=== PATIENT | female | born 1940 | race Caucasian/White ===

== ENCOUNTER 2016-10-17 17:35 | Emergency (ER) | payer OTHER, MEDICAID ==
[~2016-10-17] VITALS: Ht 144.8 cm; Wt 70.3 kg
[~2016-10-17 17:35] MED LIST: LEXAPRO10 MG PO; LOSARTAN PO; NORVASC5 MG PO; PRILOSEC40 MG PO; TRAMADOL HCL50 MG PO; TYLENOL EXTRA500 MG PO
[2016-10-17 17:40] VITALS: BP 161/81
[2016-10-17] MEDS ORDERED: diphenhydrAMINE 50 MG/ML VIAL IVP ONE (17:45)
[2016-10-17] MEDS ORDERED: FAMOTIDINE 20 MG/2 ML VIAL IVP ONE (17:45)
[2016-10-17] MEDS ORDERED: DEXAMETHASONE 10 MG/ML VIAL IVP ONE (17:45)
[2016-10-17] MEDS ORDERED: NACL 0.9% 1,000 ML IV ONE (17:45)
--- NOTE | 2016-10-17 17:45 | NUR ---
Patient ambulated to bed 2. RN evaluating patient at bedside.
--- NOTE | 2016-10-17 17:51 | NUR ---
Dr. Nielson evaluating patient at bedside.
--- NOTE | 2016-10-17 18:02 | NUR ---
BIB FAMILY, PT. STATES 15 MIN PRIOR TO ARRIVAL SHE WAS EATING A BURGER AT [employer] WHEN SHE NOTICED HER FACE AND NECK SWELLING, SWELLING AND REDNESS NOTED TO NECK AND FACE, BREATHING EVEN AND UNLABORED AT THIS TIME BUT PT. DEVELOPING DRY COUGH, AAOX4, AMBULATORY, GAIT STEADY, FAMILY AT BEDSIDE
--- NOTE | 2016-10-17 18:21 | NUR ---
Dr. Nielson re-evaluating patient at bedside.
--- NOTE | 2016-10-17 19:11 | NUR ---
technical publications manager at bedside.
--- NOTE | 2016-10-17 19:12 | NUR ---
Pt report given to NARESH BERNSTEIN. Transfer of care at this time.
--- NOTE | 2016-10-17 19:13 | NUR ---
PT STABLE, RESTING IN BED. X-RAY AT BEDSIDE. NO S/S OF DISTRESS NOTED AT THE MOMENT.
--- NOTE | 2016-10-17 20:03 | NUR ---
ER MD AWARE OF VS. PER ER MD BP MED TO BE GIVEN BEFORE D/C.
[2016-10-17] MEDS ORDERED: ENALAPRILAT 2.5 MG/2 ML VIAL IVP ONE (20:05)
[2016-10-17 20:35] VITALS: BP 154/68
--- NOTE | 2016-10-17 20:35 | NUR ---
Patient discharged BY ER MD with v/s stable. Written and verbal after care instructions given and explained BY ER MD. Patient alert, oriented and verbalized understanding of instructions. Ambulatory with steady gait. All questions addressed prior to discharge. ID band removed. Patient advised to follow up with PMD OR RETURN TO ER IF CONDITION WORSENS. Rx of PADMA AND MEDROL GIVEN given. PT TOLD TO CONT WITH HNT MEDS UNTIL TOMORROW.Patient educated on indication of medication including possible reaction and side effects. Opportunity to ask questions provided and answered.
== END 2016-10-17 20:35 | disposition home or self-care (01) ==
LOC: MED 17:40
DX: T78.09XA Anaphylactic reaction due to other food products, initial encounter (principal); I10 Essential (primary) hypertension
CPT/HCPCS: 36415; 71010; 80053; 84484; 85025; 96361; 96372; 96374; 96375; 99291; J0171; J1100; J1200; J3490; J7030; Q0092

== ENCOUNTER 2017-08-27 18:00 | Emergency (ER) | payer OTHER, MEDICAID ==
[~2017-08-27] VITALS: Ht 149.9 cm; Wt 74.8 kg
[~2017-08-27 18:00] MED LIST changes: +ACET-7740 PO; +AMLO5TAB PO; +ESCI10TA PO; -LEXAPRO10 MG PO; -NORVASC5 MG PO; -PRILOSEC40 MG PO; +TRAM50TA3 PO; -TRAMADOL HCL50 MG PO; -TYLENOL EXTRA500 MG PO
[2017-08-27 18:01] VITALS: BP 184/88
--- NOTE | 2017-08-27 18:17 | NUR ---
PATIENT BIBA DUE TO SP FALL;LT WRIST IS SWOLEEN AND APPEARS TO BE DEFORMED;DENIES ANY NUMBNESS/TINGLING SENSATION;DENIES HITTING HER HEAD/LOC;HX OF HTN;DENIES N/V/D; SKIN IS PINK/WARM/DRY; AAOX4; LUNGS CLEAR BL; HR EVEN AND REGULAR; PT DENIES ANY FEVER, CP, SOB, OR COUGH AT THIS TIME; PATIENT STATES PAIN OF 7/10 AT THIS TIME;PATIENT POSITIONED FOR COMFORT; HOB ELEVATED; BEDRAILS UP X2; BED DOWN. ER MD MADE AWARE OF PT STATUS.
--- NOTE | 2017-08-27 18:19 | NUR ---
XRAY AT BEDSIDE.
--- NOTE | 2017-08-27 19:20 | NUR ---
Patient discharged with v/s stable. Written and verbal after care instructions given and explained. Patient alert, oriented and verbalized understanding of instructions. Ambulatory with steady gait. All questions addressed prior to discharge. ID band removed. Patient advised to follow up with PMD. Rx of NORCO AND MOTRIN given. Patient educated on indication of medication including possible reaction and side effects. Opportunity to ask questions provided and answered.
[2017-08-27 19:21] VITALS: BP 170/81
--- NOTE | 2017-08-27 19:35 | NUR ---
CALLED PT, LEFT U-BNWO-BPEEF LEFT XRAY DISC. LEFT [facility] ER PHONE [phone] FOR HER TO HOT SAW HELPER.
--- NOTE | 2017-08-27 20:10 | NUR ---
PT AND SON PICKED UP XRAY DICS
== END 2017-08-27 19:20 | disposition home or self-care (01) ==
LOC: MED 18:00
DX: S62.102A Fracture of unspecified carpal bone, left wrist, initial encounter for closed fracture (principal); I10 Essential (primary) hypertension; Z79.899 Other long term (current) drug therapy; X58.XXXA Exposure to other specified factors, initial encounter; Y93.89 Activity, other specified; Y92.89 Other specified places as the place of occurrence of the external cause; Y99.8 Other external cause status
CPT/HCPCS: 29105; 73110; 99284; Q0092

== ENCOUNTER 2018-06-12 11:48 | Inpatient (IN) | payer OTHER ==
[~2018-06-12] VITALS: Ht 144.8 cm; Wt 72.6 kg
[2018-06-12 12:00] VITALS: BP 116/66
--- NOTE | 2018-06-12 12:04 | NUR ---
PT TAKEN TO BED 4 AT THIS TIME VIA W/C
--- NOTE | 2018-06-12 12:14 | NUR ---
77 YO F BIB DAUGHTER WITH C/O VOMITING, RLQ PAIN X 3 DAYS WITH DIZZINESS. PT DENIES FEVER. AAOX4, GCS 15, CMS INTACT. RR EVEN AND UNLABORED, LUNGS BL CLEAR. ABD SOFT, NON-TENDER. BOWEL SOUNDS ACTIVE X 4. SKIN WARM AND DRY TO THE TOUCH, COLOR APPRORPIATE FOR ETHNICITY. ER MD NOTIFIED. PT NEEDS MET, SAFETY PRECAUTIONS IN PLACE. WILL CONTINUE TO MONITOR.
[2018-06-12] MEDS ORDERED: NACL 0.9% 1,000 ML IV SCH (12:26)
[2018-06-12] MEDS ORDERED: MORPHINE SULFATE 4 MG/ML SYR IVP ONE (12:30)
[2018-06-12] MEDS ORDERED: ONDANSETRON 4 MG/2 ML VIAL IVP ONE (12:30)
[2018-06-12] MEDS ORDERED: ATRO1TAB PO (12:32)
[2018-06-12] MEDS ORDERED: ASPI81CT89 PO (12:32)
[2018-06-12] MEDS ORDERED: COM5 PO (12:32)
[2018-06-12] MEDS ORDERED: VITD1000 PO (12:32)
[2018-06-12 12:40] LABS: BASOPHILS % (AUTO) 0.1 % (0.0-2.0); EOSINOPHILS % (AUTO) 0.1 % (0.0-4.0); HEMATOCRIT 47.2 % (36-48); HEMOGLOBIN 16.2 g/dL (12.0-16.0); LYMPHOCYTES # (AUTO) 1.2 K/uL (2.5-16.5); LYMPHOCYTES % (AUTO) 5.9 % (20.5-51.1); MEAN CORPUSCULAR HEMOGLOBIN 33 pg (27-31); MEAN CORPUSCULAR HGB CONC 34 g/dL (33-37); MEAN CORPUSCULAR VOLUME 95.2 fL (80-94); MONOCYTES # (AUTO) 1.1 K/uL (0.8-1.0); MONOCYTES % (AUTO) 5.5 % (1.7-9.3); NEUTROPHILS % (AUTO) 88.4 % (42.2-75.2); PLATELET COUNT (AUTO) 444 K/uL (140-450); RED BLOOD CELL COUNT(AUTO) 4.96 MIL/uL (4.20-5.40); RED CELL DISTRIBUTION WIDTH 12.6 % (11.6-13.7); WHITE BLOOD COUNT (AUTO) 20.3 K/uL (4.8-10.8)
[2018-06-12 12:51] LABS: ANION GAP 16.8 (8-16); CARBON DIOXIDE 28.5 mmol/L (21-32); CHLORIDE 86 mmol/L (98-107); CREATININE 2.2 mg/dL (0.6-1.3); GLUCOSE 200 mg/dL (74-106); POTASSIUM 3.3 mmol/L (3.5-5.1); SODIUM SERUM 128 mmol/L (136-145); UREA NITROGEN, BLOOD 59 mg/dL (7-18)
[2018-06-12 12:57] LABS: ALBUMIN 3.9 g/dL (3.4-5.0); ASPARTATE AMINOTRANSFERASE 25 U/L (15-37); LIPASE 1426 U/L (73-393)
[2018-06-12] MEDS ORDERED: PIPERACILLIN/TAZOBACTAM 3.375 GM in DEXTROSE 5% 50 ML IV ONE (13:20)
--- NOTE | 2018-06-12 13:24 | NUR ---
PT TAKEN TO CT SCAN AT THIS TIME VIA SHELBY
[2018-06-12] MEDS ORDERED: PIPERACILLIN/TAZOBACTAM 3.375 GM VIAL IV ONE (13:35)
--- NOTE | 2018-06-12 14:09 | NUR ---
U/S AT BEDSIDE AT THIS TIME.
--- NOTE | 2018-06-12 14:39 | NUR ---
PT UNABLE TO PRODUCE URINE AT THIS TIME, REFUSES STRAIGHT CATH. NISHANT BAILEY NOTIFIE.D
[2018-06-12] MEDS ORDERED: DOCUSATE SODIUM 100 MG GELCAP PO PRN (15:15)
[2018-06-12] MEDS ORDERED: HYDROcodone/APAP 5/325 MG 1 TAB TAB PO PRN (15:15)
[2018-06-12] MEDS ORDERED: ONDANSETRON 4 MG/2 ML VIAL IM/IVP PRN (15:15)
[2018-06-12] MEDS ORDERED: ZOLPIDEM 5 MG TAB PO PRN (15:15)
[2018-06-12] MEDS ORDERED: ACETAMINOPHEN 325 MG TAB PO PRN (15:15)
[2018-06-12] MEDS ORDERED: LORazepam 2 MG/ML VIAL IM/IVP PRN (15:15)
[2018-06-12] MEDS ORDERED: INSULIN LISPRO SLIDING SCALE 100 UNITS/ML VIAL SUBQ PRN (15:25)
[2018-06-12] MEDS ORDERED: DEXTROSE 50% 50 ML SYR IVP PRN (15:25)
--- NOTE | 2018-06-12 15:41 | NUR ---
attempted NG insertion at this time w/o success. forms analysis manager and ER MD notified.
[2018-06-12] MEDS: BLOOD GLUCOSE MONITORING 1 DEV DEV FS SCH ×2 (16:30→20:49)
--- NOTE | 2018-06-12 16:30 | NUR ---
NG insertion attempted x 4 times to insert NG Tube. er md and resident at bedside aware of insertion difficulties. Pt does not tolerate insertion well. Pt vomits up small amount of brown, BM-smelling emesis. Pt appears tired. MD states to give pt rest with insertion and go to floor. dental assistant teacher notified.
--- NOTE | 2018-06-12 16:40 | NUR ---
Patient will be admitted to care of [facility]. Admited to tele. Will go to room 120 B. Belongings list completed. Report to NARESH Doss.
--- NOTE | 2018-06-12 16:48 | NUR ---
PT ARRIVED FROM ER IN [facility], REPORT RECEIVED FROM STEM TEACHER, PT TRANSFERRED TO BED, PT AWAKE, RESP EVEN SLIGHTLY LABORED AND TACHYPNEIC, LUNGS CLEAR, VITALS STABLE, PT SETSWANA SPEAKINGSON AT BEDSIDE, PT ORIENTED TO ROOM AND FLOOR, ALL SAFETY MEASURES IN PLACE, CALL LATHAM WITHIN REACH, SIDE RAILS UP, WILL CONTINUE TO MONITOR.
[2018-06-12 17:00] VITALS: BP 122/60
[2018-06-12] MEDS ORDERED: NACL 0.9% 500 ML IV SCH (17:05)
--- NOTE | 2018-06-12 17:15 | NUR ---
SATURATION 93% ON ROOM AIR DR TASHI DANIELS AT BEDSIDE OK FOR SUPPLEMENTAL OXYGEN AT 2 LPM VIA NC
--- NOTE | 2018-06-12 17:22 | NUR ---
AWAKE AND ALERT C/O PAIN MD AWARE TACHYPNEIC AT 32 BPM NO HHN THERAPY NOT REQUIRED AT THIS TIME REVIEWED STATUS WITH RAVI/RN
[2018-06-12] MEDS ORDERED: MORPHINE SULFATE 4 MG/ML SYR IVP PRN (17:25)
[2018-06-12] MEDS ORDERED: POTASSIUM CHLORIDE 40 MEQ, LIDOCAINE MPF 1% - 5 mL VIAL 25 MG in NACL 0.9% 250 ML IV SCH (17:30)
--- NOTE | 2018-06-12 17:30 | NUR ---
PT C/O SEVER BACK PAIN, PT APPEARS UNCOMFORTABLE, UNABLE TO SIT STILL, ABD SOFT, NON DISTENDED, DR REYES MADE AWARE, WILL GIVE MORPHINE PER ORDER.
[2018-06-12 18:01] LABS: CHOL/HDL RATIO 2.5 (1-4.5); MAGNESIUM 1.8 mg/dL (1.8-2.4); THYROID STIMULATING HORMONE 2.35 uIU/mL (0.34-3.74)
--- NOTE | 2018-06-12 18:05 | NUR ---
PT APPEARS MUCH MORE COMFORTABLE, PT RELAXED, RESTING QUIETLY, RESP EVEN UNALBORED, RR 20, FAMILY REMAINS AT BEDSIDE.
[2018-06-12 18:08] LABS: PROTHROMBIN TIME 9.7 secs (10.8-13.4)
[2018-06-12] MEDS: DEXT 5% /NACL 0.9% 1,000 ML IV SCH (18:11)
--- NOTE | 2018-06-12 18:11 | NUR ---
LAB AT BEDSIDE FOR BLOOD DRAW
--- NOTE | 2018-06-12 18:43 | NUR ---
NG 12F PLACED TO RIGHT NARE, 1000ML OF BROWN SECRETION SUCTIONED, XRAY AT BEDSIDE FOR CXR, PT LUISA MELENDEZ. Addendum: 06/12/18 at 2031 by Selam Roland RN 850ML NOT 1000ML
--- NOTE | 2018-06-12 19:29 | NUR ---
REPORT GIVEN TO NIGHT HISFT NURSE, PT IN STABLE CONDITION.
--- NOTE | 2018-06-12 19:30 | NUR ---
RECEIVED PT IN STABLE CONDITION FROM AM NURSE. AWAKE,ALERT AND ORIENTED X 4. ON TELE -ST. ON O22L.NC. FAMILY MEMBERS AT BEDSIDE. WITH NGT TO INTERMITTENT SUCTION. IVF INFUSING WELL ON THE LT AC#20. CLEAR AND PATENT. PLAN OF CARE DISCUSSED AND PT/FAMILY AND THEY VERBALIZED UNDERSTANDING. KEPT NPO FOR POSSIBLE SURGERY TONIGHT. BED ON LOW POSITION. CALL LIGHT WITHIN REACH. WILL CONTINUE TO MONITOR.
[2018-06-12 19:45] VITALS: BP 124/74
[2018-06-12] MEDS: ALBUTEROL SULFATE/IPRATROPIU 3 ML SOL IH PRN (19:51)
[2018-06-12] MEDS ORDERED: HYDROmorphone 1 MG/ML AMP IVP ONE (20:20)
--- NOTE | 2018-06-12 20:49 | NUR ---
BLOOD SUAGR AWSS 181. DR. ESTRELLA SAID TO HOLD INSULIN COVERAGE.
[2018-06-12] MEDS ORDERED: PIPER/TAZO 2.25GM/D5W PREMIX 50 ML IV SCH (21:00)
--- NOTE | 2018-06-12 21:00 | NUR ---
KNUCKLE STRAP SEWER CALLED AND SAID RESULT OF CXR IS IN AND NEED TO BE ADDRESSED. NGT ON 850 LEVEL. REPOSITIONED, PUSHED NGT @1 INCH MORE THEN,CHECKED PLACEMENT. NGT CONNECTED BACK TO SUCTION AND STARTED SUCTIONING TOTAL 650 ML OF SLIGHTLY PINK TO LIGHT BROWN FLUIDS OUTPUT . PT ABDOMEN SOFT ,SLIGHTLY TENDER. WILL CONTINUE TO MONITOR.
--- NOTE | 2018-06-12 21:05 | NUR ---
PAGED DR. MONTILLA TO KNOW THE TIME OF SURGERY. CALLED BACK. HE IS DOING SURGERY TONIGHT. WAY . RN SIGNAL SYSTEM TESTING MAINTAINER ALSO AWARE FOR DR. MONTILLA TALKED TO HER ALSO.
--- NOTE | 2018-06-12 21:52 | NUR ---
BLOOD TRANSFUSION CONSENT SIGNED BY SON . WILL TALK TO DR. MONTILLA SOON HE COMES TO THE FLOOR.
[2018-06-12] MEDS ORDERED: MIDAZOLAM 2 MG/2 ML VIAL ONE (22:22)
[2018-06-12] MEDS ORDERED: fentaNYL 0.05 MG/ML VIAL ONE (22:23)
--- NOTE | 2018-06-12 22:24 | NUR ---
DR. MONTILLA CAME AND TALKED TO PT/FAMILY MEMBERS. TO OR BY BED. WITH IVF INFUSING . NGT CLAMPED. ON O22L/NC.
[2018-06-12] MEDS ORDERED: SEVOFLURANE 250 ML BTL INH ONE (22:25)
[2018-06-12] MEDS ORDERED: NEOSTIGMINE 1:1000 10 MG/10 ML VIAL ONE (22:25)
[2018-06-12] MEDS ORDERED: PROPOFOL 200 MG/20 ML VIAL IV ONE (22:25)
[2018-06-12] MEDS ORDERED: ROCURONIUM 50 MG/5 ML VIAL IV ONE (22:25)
[2018-06-12] MEDS ORDERED: SUCCINYLCHOLINE CHLORIDE 200 MG/10 ML VIAL IVP ONE (22:25)
[2018-06-12] MEDS ORDERED: BUPIVACAINE-MPF/EPI 0.25% 30 ML VIAL INJ ONE (22:37)
[2018-06-12] MEDS ORDERED: ONDANSETRON 4 MG/2 ML VIAL IVP PRN (23:35)
[2018-06-12] MEDS ORDERED: LACTATED RINGERS 1,000 ML IV SCH (23:35)
[2018-06-12] MEDS ORDERED: HYDROmorphone 1 MG/ML AMP IVP PRN (23:35)
[2018-06-12] MEDS ORDERED: diphenhydrAMINE 50 MG/ML VIAL IVP PRN (23:35)
[2018-06-13] VITALS (36 sets, daily range): BP systolic 43–159; BP diastolic 13–97
[2018-06-13] MEDS ORDERED: FUROSEMIDE 40 MG/4 ML VIAL IVP ONE (00:16)
[2018-06-13] MEDS: ALBUTEROL SULFATE/IPRATROPIU 3 ML SOL IH PRN ×2 (00:41→03:04)
[2018-06-13] MEDS ORDERED: ePHEDrine 50 MG/ML VIAL ONE (01:02)
[2018-06-13] MEDS ORDERED: PROPOFOL 1000 MG/100 ML PREMIX 100 ML IV PRN (01:35)
--- NOTE | 2018-06-13 01:35 | NUR ---
RECEIVED PT FROM OR. PT IN STABLE CONDITION. UNABLE TO FOLLOW COMMANDS. INTUBATED. FIO2 100%. AFEBRILE 97.6. LUNG SOUNDS CLEAR. LABORED BREATHING. NGT TO L NARE TO LOW INTERMITTENT SUCTION. NPO. DING IN PLACE. S1S2 PRESENT. ST ON MONITOR . IV SITE L AC 20G. RIGHT FEMORAL LORENZO DRAIN. BED IN LOWEST POSITION. SIDE RAILS UP X 4. WILL CONTINUE TO MONITOR.
[2018-06-13] MEDS: DEXT 5% /NACL 0.9% 1,000 ML IV SCH (01:40)
--- NOTE | 2018-06-13 01:42 | NUR ---
PT INTUBATED BY Rand CARVALHO ATTENDED WITH RT RUSHING AND O.R. STAFF, TRANSFERRED PT TO ICU WITH NO INCIDENT. ABG DONE WITH NO INCIDENT, VERIFIED BY REPEAT ANALYSIS, VERBAL READBACK CONFIRMED AND CALLED RESULTS TO JOSE PINEDA. VENT CONNECTED TO RED OUTLET. ALARMS AUDIBLE. NO SOB OR DISTRESS NOTED. WILL CONTINUE TO MONITOR.
--- NOTE | 2018-06-13 02:00 | NUR ---
PT DISLOGED NGT. DR. ESTRELLA ORDERED FOR PROPOFOL DRIP.
--- NOTE | 2018-06-13 02:10 | NUR ---
REINSERTED NGT TO L NARE. BLOOD PRESSURE 129/90 AT THIS TIME.
--- NOTE | 2018-06-13 02:50 | NUR ---
PT HAS LOW SATURATION AND UNABLE TO OBTAIN BP. CALLED RT AT THIS TIME
--- NOTE | 2018-06-13 02:56 | NUR ---
UNABLE TO GET A POX READING DUE TO LOW BP .. TRIED FINGER AND EAR. PATIENT IS ON 100% FIO2 ON VENTILATOR
--- NOTE | 2018-06-13 03:00 | NUR ---
PAGED DR. ESTRELLA. UNABLE TO OBTAIN BP. EKG SHOWS SINUS TACH. ORDERED FOR CENTRAL LINE PLACEMENT
[2018-06-13] MEDS ORDERED: NACL 0.9% 1,000 ML IV ONE (03:10)
[2018-06-13] MEDS ORDERED: NOREPINEPHRINE 8 MG in DEXTROSE 5% 250 ML IV PRN (03:10)
[2018-06-13] MEDS ORDERED: AMIODARONE 150 MG/3 ML VIAL IV ONE (03:21)
[2018-06-13] MEDS ORDERED: NOREPINEPHRINE 4 MG/4 ML VIAL IV ONE ×2 (03:21→03:44)
[2018-06-13] MEDS ORDERED: SODIUM BICARBONATE 8.4% PFS 50 MEQ/50 ML SYR IVP ONE (03:21)
[2018-06-13] MEDS ORDERED: EPINEPHrine PFS 0.1 MG/ML SYR IVP ONE (03:21)
--- NOTE | 2018-06-13 03:45 | NUR ---
DR. QUIROZ AT BEDSIDE TO INSERT CENTRAL LINE TO LEFT FEMORAL
--- NOTE | 2018-06-13 03:45 | NUR ---
LEVOPHED 10 MCG ADMINISTERED = 12.7 ML/HR
--- NOTE | 2018-06-13 03:46 | NUR ---
PAGED DR. MONTILLA REGARDING CURRENT CODE BLUE.
--- NOTE | 2018-06-13 03:52 | NUR ---
LEVOPHED 20 MCG ADJUSTED = 37.5ML/HR
[2018-06-13] MEDS ORDERED: EPINEPHrine 1:1000 6 MG in DEXTROSE 5% 250 ML IV PRN (03:55)
--- NOTE | 2018-06-13 03:55 | NUR ---
DR DAY AT BEDSIDE
--- NOTE | 2018-06-13 03:59 | NUR ---
0321 CODE BLUE CALLED. STARTED COMPRESSIONS AND BAGGING PATIENT WITH 100% FIO2. ACLS DRUGS GIVEN. HEART RATE CAME BACK. PLACED PATIENT BACK ON VENT WITH SAME SETTINGS
--- NOTE | 2018-06-13 04:05 | NUR ---
LEVOVPHED 30 MCG/KG/MIN ADJUSTED = 56.2 ML/HR
--- NOTE | 2018-06-13 04:06 | NUR ---
0339 CODE BLUE CALLED AGAIN. CPR STARTED AND BAGGING PATIENT WITH FIO2 100%. ACLS DRUGS GIVEN. HEART RATE CAME BACK AND PATIENT PLACED BACKM ON VENT WITH SAME SETTINGS. PT HAS LARGE AMOUNTS OF RED FROTHY SECRETIONS. WITH WERE SXNED
--- NOTE | 2018-06-13 04:08 | NUR ---
DR. QUIROZ INSERTED CENTRAL LINE TO RIGHT FEMORAL AT THIS TIME.
--- NOTE | 2018-06-13 04:11 | NUR ---
4MG EPI ADMINISTERED. PT IN SINUS RHYTHM AT THIS TIME. 3L NS BOLUS GIVEN TOTAL
--- NOTE | 2018-06-13 04:50 | NUR ---
FAMILY AT BEDSIDE AT THIS TIME.
[2018-06-13] MEDS ORDERED: PIPER/TAZO 2.25GM/D5W PREMIX 50 ML IV SCH (05:00)
[2018-06-13] MEDS ORDERED: PIPERACILLIN/TAZOBACTAM 2.25 GM VIAL IV ONE (05:13)
--- NOTE | 2018-06-13 05:35 | NUR ---
unable to get saturation. poor perfusion
--- NOTE | 2018-06-13 05:37 | NUR ---
PAGED DR MONTILLA AGAIN TO INFORM OF CODE.
--- NOTE | 2018-06-13 05:39 | NUR ---
PAGED DR ESTRELLA OF DROPPING BLOOD PRESSURE. WILL CONTINUE TO FOLLOW UP ADDITIONAL ORDERS.
--- NOTE | 2018-06-13 05:50 | NUR ---
VASOPRESSIN STARTED AT THIS TIME
[2018-06-13] MEDS: VASOPRESSIN 20 UNITS in NACL 0.9% 250 ML IV SCH ×2 (05:55→07:10)
[2018-06-13] MEDS ORDERED: VASOPRESSIN 20 UNITS/ML VIAL ONE ×2 (05:56→07:10)
--- NOTE | 2018-06-13 06:00 | NUR ---
RT AT BEDSIDE AT THIS TIME. XRAY AT BEDSIDE AT THIS TIME
--- NOTE | 2018-06-13 06:11 | NUR ---
DR HO AT BEDSIDE AT THIS TIME.
--- NOTE | 2018-06-13 06:18 | NUR ---
NGT REMOVED AND REINSERTED AT THIS TIME.
--- NOTE | 2018-06-13 06:23 | NUR ---
RECEIVED PT ON [place] ON DOCUMENTED SETTINGS ALARMS ARE ON AND AUDIBLE PT ET TUBE SIZE 7,5 IS SECURE [address] FAST IN PLACE PT IN HF NOT AWAKE BS CRACKLES FAMILY MEMBERS PRESENT BMV HOB VENT PLUGGED INTO RED OUTLET
[2018-06-13] MEDS ORDERED: NACL 0.9% 500 ML IV SCH (06:30)
--- NOTE | 2018-06-13 06:30 | NUR ---
DR. HO MET WITH PT FAMILY AT THIS TIME. CODE STATUS CHANGED FROM FULL CODE TO MODIFIED CODE WITH NO CHEST COMPRESSIONS. ACLS DRUGS ONLY
[2018-06-13 06:31] LABS: BASOPHILS % (AUTO) 0.4 % (0.0-2.0); EOSINOPHILS # (AUTO) 0.1 K/uL (0-0.4); EOSINOPHILS % (AUTO) 1.9 % (0.0-4.0); HEMATOCRIT 40.8 % (36-48); HEMOGLOBIN 13.3 g/dL (12.0-16.0); LYMPHOCYTES # (AUTO) 1.4 K/uL (2.5-16.5); LYMPHOCYTES % (AUTO) 31.5 % (20.5-51.1); MEAN CORPUSCULAR HEMOGLOBIN 33 pg (27-31); MEAN CORPUSCULAR HGB CONC 33 g/dL (33-37); MEAN CORPUSCULAR VOLUME 101.5 fL (80-94); MONOCYTES # (AUTO) 0.2 K/uL (0.8-1.0); MONOCYTES % (AUTO) 3.5 % (1.7-9.3); NEUTROPHILS # (AUTO) 2.7 K/uL (1.8-7.7); NEUTROPHILS % (AUTO) 62.7 % (42.2-75.2); PLATELET COUNT (AUTO) 257 K/uL (140-450); RED BLOOD CELL COUNT(AUTO) 4.02 MIL/uL (4.20-5.40); RED CELL DISTRIBUTION WIDTH 13.1 % (11.6-13.7); WHITE BLOOD COUNT (AUTO) 4.3 K/uL (4.8-10.8)
--- NOTE | 2018-06-13 06:31 | NUR ---
DR HO ORDERED BOLUS 500 ML NORMAL SALINE AT THIS TIME.
--- NOTE | 2018-06-13 06:32 | NUR ---
LAB AT BEDSIDE AT THIS TIME TO REDRAW BLOOD. BLOOD HEMOLYZED.
--- NOTE | 2018-06-13 06:37 | NUR ---
LEAVE MESSAGE TO [facility], FAMILY WANTS DRYING ROOM ATTENDANT
[2018-06-13] MEDS ORDERED: NACL 0.9% 500 ML IV ONE (06:40)
--- NOTE | 2018-06-13 07:04 | NUR ---
ENDORSED CARE TO INCOMING SHIFT FOR CONTINUITY OF CARE. FAMILY AT BEDSIDE.
--- NOTE | 2018-06-13 07:05 | NUR ---
RECEIVED REPORT FROM LEASE ADMINISTRATION SUPERVISOR RN AT BEDSIDE, PT IS LETHARGIC, UNABLE TO FOLLOW COMMANDS AND MAKE NEEDS KNOWN, FLACC 0. ETT TO VENT WITH AC/PC MODE FIO2 100, R 16, PEEP 5. NO S/S OF DISTRESS, RHONCHI LUNG SOUNDS MEREDITH, O2 SAT 77%, SR ON ACCOUNTANT AUDITOR, WEAK PULSES TO EXTREMITIES NOTED, BP 84/46, SOFT ABDOMEN WITH HYPOACTIVE SOUNDS, SURGICAL WOUND SITE TO LOWER ABDOMEN WITH JEFF, NO BLEEDING NOTED, LORENZO DRAINAGE TO RIGHT GROIN WITH DARK RED DRAINAGE NOTED, CENTRAL LINE TO RIGHT FEMORAL, TLC, PATENT, RUNNING VASOPRESSIN AT 0.4UNITS/HR, LEVOPHED AT 30 MCG/MIN, AND EPINEPHRINE AT 10 MCG/MIN. DING CATHETER IN PLACE WITH CLOUDY DARK YELLOW URINE IN BAG VIA GRAVITY, SEVERE WEAKNESS TO ALL EXTREMITIES. SKIN IS COLD, BEARHUGGER PLACED ON, PERIPHERAL LINE TO LAC, 20GA, PATENT, RUNNING D5NS AT 100ML/HR. HOB ELEVATED TO 30 DEGREES, SAFETY MEASURE IN PLACE, WILL CONTINUE TO MONITOR. Addendum: 06/13/18 at 1016 by Opal Hermosillo RN OGT IN PLACE WITH IWS.
[2018-06-13] MEDS: BLOOD GLUCOSE MONITORING 1 DEV DEV FS SCH (07:30)
[2018-06-13 07:56] LABS: BASOPHILS % (AUTO) 0.4 % (0.0-2.0); EOSINOPHILS # (AUTO) 0.1 K/uL (0-0.4); HEMATOCRIT 32.7 % (36-48); HEMOGLOBIN 10.7 g/dL (12.0-16.0); LYMPHOCYTES # (AUTO) 1.7 K/uL (2.5-16.5); LYMPHOCYTES % (AUTO) 29.2 % (20.5-51.1); MEAN CORPUSCULAR HEMOGLOBIN 34 pg (27-31); MEAN CORPUSCULAR HGB CONC 33 g/dL (33-37); MEAN CORPUSCULAR VOLUME 102.2 fL (80-94); MONOCYTES # (AUTO) 0.2 K/uL (0.8-1.0); MONOCYTES % (AUTO) 2.7 % (1.7-9.3); NEUTROPHILS # (AUTO) 3.9 K/uL (1.8-7.7); NEUTROPHILS % (AUTO) 66.7 % (42.2-75.2); PLATELET COUNT (AUTO) 221 K/uL (140-450); RED CELL DISTRIBUTION WIDTH 13.2 % (11.6-13.7); WHITE BLOOD COUNT (AUTO) 5.8 K/uL (4.8-10.8)
--- NOTE | 2018-06-13 08:00 | NUR ---
ACCU CHECK WITH 194MG/DL, DR. HO SAID IT IS OK TO HOLD INSULIN NOW, WILL CHANGE FLUID AND ACCU CHECK Q1H, JUST MONITOR.
--- NOTE | 2018-06-13 08:15 | NUR ---
ORAL CARE PROVIDED, PT HAD A BOWEL MOVEMENT, PERICARE PROVIDED, POSITION CHANGED FOR OFF LOAD PRESSURE.
[2018-06-13 08:16] LABS: ANION GAP 24.9 (8-16); CARBON DIOXIDE 12.7 mmol/L (21-32); CHLORIDE 102 mmol/L (98-107); CREATININE 2.6 mg/dL (0.6-1.3); GLUCOSE 194 mg/dL (74-106); POTASSIUM 3.6 mmol/L (3.5-5.1); SODIUM SERUM 136 mmol/L (136-145); UREA NITROGEN, BLOOD 56 mg/dL (7-18)
[2018-06-13 08:18] LABS: PROTHROMBIN TIME 19.3 secs (10.8-13.4)
--- NOTE | 2018-06-13 08:30 | NUR ---
IT IS OK TO HOLD AM PO MEDICATION AT THIS TIME PER DR. HO DUE TO PT'S CONDITION.
--- NOTE | 2018-06-13 08:39 | NUR ---
PATIENT HAS BEEN SCREENED AND CATEGORIZED HIGH NUTRITION RISK. PATIENT WILL BE SEEN WITHIN 1-2 DAYS OF ADMISSION. 06/13/18-06/14/[address]
--- NOTE | 2018-06-13 08:45 | NUR ---
rts unable to obtain abg at this time md brar
[2018-06-13 08:49] LABS: MAGNESIUM 1.6 mg/dL (1.8-2.4); PHOSPHORUS 7.1 mg/dL (2.5-4.9)
[2018-06-13] MEDS ORDERED: amLODIPine 5 MG TAB PO SCH (09:00)
[2018-06-13] MEDS ORDERED: LACTOBACILLUS RHAMNOSUS GG 1 EACH CAP PO SCH (09:00)
[2018-06-13] MEDS ORDERED: NACL 0.9% 1,000 ML IV SCH (09:00)
[2018-06-13] MEDS ORDERED: LOSARTAN 50 MG TAB PO SCH (09:00)
[2018-06-13] MEDS ORDERED: ASPIRIN 81 MG TAB.CHEW PO SCH (09:00)
[2018-06-13] MEDS ORDERED: CHOLECALCIFEROL 1,000 IU TAB PO SCH (09:00)
[2018-06-13] MEDS ORDERED: LOSARTAN 100 MG PO SCH (09:00)
--- NOTE | 2018-06-13 10:00 | NUR ---
NO S/S OF DISTRESS, FLACC 0, POSITION CHANGED FOR OFF LOAD PRESSURE.
--- NOTE | 2018-06-13 10:22 | NUR ---
DR. HO SPOKE TO PT'S SON THE RISK AND BENEFIT OF EXTUBATION, PT'S SON VERBALIZED UNDERSTANDING, AND AGREED TO EXTUBATE PT, AND PUT PT ON COMFORT CARE WITH MORPHINE DRIP.
[2018-06-13] MEDS ORDERED: MORPHINE SULFATE 50 MG in NACL 0.9% 45 ML IV PRN (10:30)
[2018-06-13] MEDS ORDERED: SCOPOLAMINE 1.5 MG/72 HR PATCH TD SCH (10:30)
[2018-06-13] MEDS ORDERED: HYOSCYAMINE 0.125 MG TAB NG PRN (10:30)
[2018-06-13] MEDS ORDERED: LORazepam 2 MG/ML VIAL IVP PRN (10:30)
[2018-06-13] MEDS ORDERED: BLOOD GLUCOSE MONITORING 1 DEV DEV FS SCH (11:00)
--- NOTE | 2018-06-13 11:45 | NUR ---
PT EXTUBATED PER ORDER
--- NOTE | 2018-06-13 11:54 | NUR ---
EXTUBATED AT 1145 BY RN, PT IS ASYSTOLE AT 1148, DR. MARTEL PRONOUNCED AT 1152. PT'S FAMILY MEMBERS AT BEDSIDE.
--- NOTE | 2018-06-13 12:08 | NUR ---
CALLED [facility], , THEY WILL NOT CONSIDER AN ORGAN DONATION AT THIS TIME.
--- NOTE | 2018-06-13 12:22 | NUR ---
INFORMED SB LOADER MACHINE, WILL CALL BACK LATER.
--- NOTE | 2018-06-13 13:36 | NUR ---
CELERY STRIPPER CHRISTIANE COPPOLA CALLED BACK, AND OK TO RELEASE THE BODY, .
--- NOTE | 2018-06-13 13:40 | NUR ---
CALLED [facility], WILL CALL OR CONTACT CENTRE OPERATOR PT'S BODY IN [id number] MINS.
--- NOTE | 2018-06-13 14:35 | NUR ---
Ground Hand Note: Note for earlier today: I met with patient's son Venu Patel. Venu is patient's healthcare decision maker. Prior to hospital admission patient was living with Venu, Venu was patient's caregiver. He stated patient's family members are all in agreement with extubation. He stated they are not interested in hospice services. He expressed all of their questions and concerns have been address by . He thanked us for our assistance and support. I provided him with my contact information.
--- NOTE | 2018-06-13 16:00 | NUR ---
pt's body was picked up by [facility].
== END 2018-06-13 11:52 | disposition expired | DRG 853 ==
LOC: MED 11:48 → MTU 15:21 → MIC 06-13 01:18
PROVIDERS: ADMIT General Practice; ATTEND General Practice
PROC: 0D9670Z Drainage of Stomach with Drainage Device, Via Natural or Artificial Opening (ICD-10-PCS; 2018-06-12)
PROC: 5A1935Z Respiratory Ventilation, Less than 24 Consecutive Hours (ICD-10-PCS; principal; 2018-06-13)
PROC: 0YQ70ZZ Repair Right Femoral Region, Open Approach (ICD-10-PCS; 2018-06-13)
PROC: 0BH17EZ Insertion of Endotracheal Airway into Trachea, Via Natural or Artificial Opening (ICD-10-PCS; 2018-06-13)
PROC: 06HY33Z Insertion of Infusion Device into Lower Vein, Percutaneous Approach (ICD-10-PCS; 2018-06-13)
DX: A41.9 Sepsis, unspecified organism (principal); R65.21 Severe sepsis with septic shock; J96.01 Acute respiratory failure with hypoxia; K85.90 Acute pancreatitis without necrosis or infection, unspecified; N17.0 Acute kidney failure with tubular necrosis; K56.601 Complete intestinal obstruction, unspecified as to cause; E87.1 Hypo-osmolality and hyponatremia; N39.0 Urinary tract infection, site not specified; K41.30 Unilateral femoral hernia, with obstruction, without gangrene, not specified as recurrent; I46.9 Cardiac arrest, cause unspecified; E87.6 Hypokalemia; E86.0 Dehydration; I10 Essential (primary) hypertension; Z66 Do not resuscitate; M19.90 Unspecified osteoarthritis, unspecified site; E87.8 Other disorders of electrolyte and fluid balance, not elsewhere classified; R73.9 Hyperglycemia, unspecified; K80.20 Calculus of gallbladder without cholecystitis without obstruction; E83.39 Other disorders of phosphorus metabolism; E83.42 Hypomagnesemia; Z79.82 Long term (current) use of aspirin; Z79.899 Other long term (current) drug therapy
CPT/HCPCS: 31500; 36415; 36600; 71045; 76705; 80048; 80053; 82150; 82803; 82948; 83036; 83605; 83690; 83735; 84100; 84134; 84443; 84484; 85025; 85610; 85730; 86886; 86900; 86901; 86920; 87040; 87081; 93005; 94002; 94003; 94640; 96361; 96375; 99285; J0171; J0282; J0330; J1170; J1644; J1815; J1940; J2001; J2250; J2270; J2405; J2543; J2704; J2710; J3010; J3480; J3490; J7030; J7042; J7060; J7120; J7620; Q0092